=== PATIENT | female | born 1940 | race Caucasian/White ===

== ENCOUNTER 2021-05-28 16:20 | Emergency (ER) | payer MEDICARE, OTHER ==
[2021-05-28 17:54] LABS: BASOPHIL 0.4 % (0-2); HCT 43.1 % (37.0-47.0); HGB 14.6 g/dl (12.5-16.0); LYMPHOCYTE 22.2 % (15-48); MCH 30.4 pg (25.0-31.0); MCHC 33.9 g/dL (32.0-36.0); MCV 89.6 fL (78.0-100.0); MONOCYTE 12.8 % (0-12); MPV 10.7 fL (6.0-9.5); PLT 209 K/uL (150-400); RBC 4.81 M/uL (4.20-5.40); RDW 12.4 % (11.5-14.0); WBC 5.54 K/uL (4.0-10.5)
[2021-05-28 17:54] LABS: BILIRUBIN NEGATIVE (NEGATIVE); BLOOD TRACE-INTACT Ery/uL (NEGATIVE); CLARITY HAZY (CLEAR); COLOR YELLOW (YELLOW); GLUCOSE (U) NORMAL (NORMAL); LEUKOCYTES TRACE Leu/uL (NEGATIVE); NITRITE POSITIVE (NEGATIVE); PROTEIN 2+ mg/dL (NEGATIVE); SPECIFIC GRAVITY 1.025 (1.001-1.030)
[2021-05-28 17:55] LABS: NEUTROPHIL 64.2 % (41-80)
[2021-05-28 17:59] LABS: ALBUMIN 3.4 g/dL (3.4-5.0); BILIRUBIN - TOTAL 0.7 mg/dL (0.2-1.0); BUN/CREAT RATIO (CALC) 19.7 RATIO; CREATININE 0.66 mg/dL (0.51-0.95); POTASSIUM 3.5 mmol/L (3.5-5.1); TOTAL PROTEIN 8.4 g/dL (6.4-8.2)
[2021-05-28 17:59] LABS: BACTERIA 4+; URINARY WBC 20-50
[2021-05-28 18:27] LABS: INFLUENZA A NAA NEGATIVE (NEGATIVE)
[2021-05-28 18:30] LABS: CORONAVIRUS 2019 SARS-COV-2 POSITIVE (NEGATIVE)
[2021-05-28] MEDS ORDERED: LEVAQUIN500 MG PO (19:57)
== END 2021-05-28 20:35 | disposition home or self-care (01) ==
LOC: FER 16:20
PROVIDERS: Nurse Practitioner Family
DX: U07.1 COVID-19 (principal); N39.0 Urinary tract infection, site not specified; E11.9 Type 2 diabetes mellitus without complications; I10 Essential (primary) hypertension; Z88.5 Allergy status to narcotic agent; Z23 Encounter for immunization
CPT/HCPCS: 36415; 80053; 81001; 85025; J7030; M0243; Q0244; U0002

== ENCOUNTER 2021-05-30 18:03 | Emergency (ER) | payer MEDICARE, OTHER ==
[~2021-05-30 18:03] MED LIST: LEVAQUIN500 MG PO
[2021-05-30 20:10] LABS: BASOPHIL 0.2 % (0-2); EOSINOPHIL 0.1 % (0-7); HCT 40.8 % (37.0-47.0); HGB 14.1 g/dl (12.5-16.0); LYMPHOCYTE 21.6 % (15-48); MCH 31.1 pg (25.0-31.0); MCHC 34.6 g/dL (32.0-36.0); MCV 89.9 fL (78.0-100.0); MONOCYTE 9.2 % (0-12); MPV 10.1 fL (6.0-9.5); NEUTROPHIL 68.3 % (41-80); NRBC 0; PLT 262 K/uL (150-400); RBC 4.54 M/uL (4.20-5.40); RDW 12.4 % (11.5-14.0); WBC 8.7 K/uL (4.0-10.5)
[2021-05-30 20:29] LABS: BILIRUBIN - TOTAL 0.6 mg/dL (0.2-1.0); BUN/CREAT RATIO (CALC) 14.3 RATIO; CREATININE 0.56 mg/dL (0.51-0.95); GLOBULIN (CALCULATION) 4.8 g/dL; POTASSIUM 3.2 mmol/L (3.5-5.1); TOTAL PROTEIN 7.8 g/dL (6.4-8.2)
[2021-05-30] MEDS ORDERED: ZOFRAN4 M1 PO (22:01)
[2021-05-30] MEDS ORDERED: PHENERGAN6.25 MG/5 PO (22:14)
[2021-05-30] MEDS ORDERED: KEFLEX250 MG/5 M PO (22:14)
== END 2021-05-30 22:14 | disposition home or self-care (01) ==
LOC: FER 18:03
PROVIDERS: Emergency Medicine
DX: U07.1 COVID-19 (principal); I10 Essential (primary) hypertension; E11.9 Type 2 diabetes mellitus without complications; Z90.710 Acquired absence of both cervix and uterus; Z88.5 Allergy status to narcotic agent
CPT/HCPCS: 36415; 71045; 80053; 84484; 85025; 93005; J0696; J2405; J7030